=== PATIENT | female | born 1985 | race Caucasian/White ===

== ENCOUNTER 2022-05-11 06:31 | Day surgery (SDC) | payer BC ==
[2022-05-05 17:27] VITALS: BMI 22.4
[2022-05-11] MEDS ORDERED: ceFAZolin SODIUM 1 GM VIAL ONE ×2 (07:08→07:56)
[2022-05-11] MEDS ORDERED: GENTAMICIN SO4 80 MG/2 ML VIAL ONE (07:08)
[2022-05-11] MEDS ORDERED: fentaNYL CITRATE 250 MCG/5 ML VIAL ONE (07:24)
[2022-05-11] MEDS ORDERED: PROPOFOL 20 ML ONE ×3 (07:24)
[2022-05-11] MEDS ORDERED: ROCURONIUM BROMIDE 50 MG/5 ML SYRINGE ONE ×2 (07:24→08:49)
[2022-05-11] MEDS ORDERED: SUCCINYLCHOLINE CHLORIDE 200 MG/10 ML SYRINGE ONE (07:24)
[2022-05-11] MEDS ORDERED: MIDAZOLAM HCL 2 MG/2 ML SINGLE DOSE VIAL ONE (07:25)
[2022-05-11] MEDS ORDERED: DEXAMETHASONE SOD PHOSPHATE 4 MG/1 ML VIAL ONE (07:56)
[2022-05-11] MEDS ORDERED: LIDOCAINE HCL 2% JELLY (5 ML/TUBE) ONE (07:56)
[2022-05-11] MEDS ORDERED: ONDANSETRON 4 MG/2 ML VIAL ONE (07:56)
[2022-05-11] MEDS ORDERED: GUM MASTIC/STORAX/MSAL/ALCOHOL 1 DRP DROPSBTL MC ONE (10:36)
[2022-05-11] MEDS ORDERED: oxyCODONE HCL 5 MG TABLET PO PRN ×3 (11:06→11:08)
[2022-05-11] MEDS ORDERED: PROMETHAZINE HCL 25 MG/1 ML VIAL IVPUSH PRN (11:06)
[2022-05-11] MEDS ORDERED: ONDANSETRON 4 MG/2 ML VIAL IVPUSH PRN (11:06)
[2022-05-11] MEDS ORDERED: ONDANSETRON 4 MG/2 ML VIAL IVPB PRN (11:08)
[2022-05-11] MEDS ORDERED: LACTATED RINGERS SOLUTION 1,000 ML IV SCH (11:15)
[2022-05-11 12:38] VITALS: TEMP 98
[2022-05-11 14:29] VITALS: BP 105/60; PULSE 92
== END 2022-05-11 12:45 | disposition home or self-care (01) ==
LOC: FASUSAT 06:31
PROVIDERS: ATTEND Plastic Surgery
PROC: 0H0V0JZ Alteration of Bilateral Breast with Synthetic Substitute, Open Approach (ICD-10-PCS; principal; 2022-05-11 08:08)
PROC: 0WQF0ZZ Repair Abdominal Wall, Open Approach (ICD-10-PCS; 2022-05-11 08:08)
DX: N64.82 Hypoplasia of breast (principal); N64.81 Ptosis of breast; K42.9 Umbilical hernia without obstruction or gangrene
CPT/HCPCS: 19316; 19325; 49585; L8600; 81025; 88305-TC; 88341-TC; 88342-TC; 94760